=== PATIENT | female | born 1990 | race Caucasian/White ===

== ENCOUNTER → 2016-09-21 | Day surgery (SDC) | payer OTHER ==
[~2016-09-21] VITALS: Ht 162.6 cm; Wt 64.4 kg
[~2016-09-21] MED LIST: ALBU17IN2 INH; BUPIVACAINE HCL 0.25% 30 ML VIAL As Ordered ONE; BUPIVACAINE HCL 0.25% 30 ML VIAL XX ONE; LIDOCAINE 2% INJ 100 MG/5 ML SDV (FOR ANES.) As Ordered ONE; LR 1,000 ML IV SCH; MEPERIDINE INJ 25 MG/ML VIAL (J2175) IV PRN; METOCLOPRAMIDE INJ 10MG/2ML VIAL (J2765) As Ordered ONE; METOCLOPRAMIDE INJ 10MG/2ML VIAL (J2765) IV PRN; MIDAZOLAM INJ 2 MG/2 ML VIAL (J2250) As Ordered ONE; ONDANSETRON 4MG/2ML VIAL (J2405) IV PRN; PERCOCET 5MG/325MG TAB PO PRN; PROPOFOL 200 MG/20 ML VIAL As Ordered ONE; ROCURONIUM BROMIDE 50 MG/5 ML VIAL As Ordered ONE; dexameTHASONE 4 MG/ML 1ML VIAL (J1100) As Ordered ONE; fentaNYL 100 MCG/2 ML INJECTION (J3010) As Ordered ONE; fentaNYL 100 MCG/2 ML INJECTION (J3010) IV PRN; fentaNYL 250 MCG/5 ML INJECTION (J3010) As Ordered ONE
[2016-09-21 12:23] LABS: CONTROL LINE UCG INT CTR LINE PRESENT
[2016-09-21 15:20] VITALS: BP 132/68
--- NOTE | 2016-09-23 06:13 | RO ---
DATE OF PROCEDURE: 09/21/2016 PREOPERATIVE DIAGNOSIS: Symptomatic gallstones. POSTOPERATIVE DIAGNOSIS: Symptomatic gallstones. PROCEDURE PERFORMED: Laparoscopic cholecystectomy. SURGEON: Dr. Dustin Dominguez ANESTHESIA: General. INDICATIONS FOR PROCEDURE: Patient is a pleasant 25-year-old woman who had an episode of significant upper abdominal pain. Evaluation included an ultrasound that showed cholelithiasis. She is now for laparoscopic cholecystectomy. OPERATIVE PROCEDURE: The patient was placed under general endotracheal anesthesia. The patient's abdomen was prepped and draped in a sterile fashion. 0.25% Marcaine was infiltrated at each of the trocar sites. A short transverse curved incision was made in the upper aspect of the umbilicus. The skin was elevated and the fascia was opened along the midline just above the umbilicus. The peritoneum was elevated and opened. A Starks cannula was inserted and the abdomen was inflated with carbon dioxide gas. The laparoscope was inserted. Initial examination showed a distended appearing gallbladder with a normal-appearing liver. Visualized loops of the small and large bowel appeared normal. The patient had significant adhesions of the uterus and tubes and ovaries to the anterior abdominal and pelvic wall. Her uterus appeared to be solidly adherent to her anterior abdominal wall deep to her skin incision from a previous section. The tubes and ovaries were also adherent to the anterior pelvic wall. Attention was turned back to the gallbladder. The patient was tilted to a reverse Trendelenburg position and rolled to the left. Two 5 mm trocars were placed in the right upper quadrant and a third 5 mm trocar was placed in the left upper quadrant. Graspers were inserted. The gallbladder did not appear acutely inflamed, but was somewhat distended, though not tensely so. The gallbladder was grasped and elevated. Because the patient was thin, her cystic duct was clearly identified coursing down to its juncture with the common hepatic duct. The artery was similarly identified readily. The peritoneum was opened and both structures were dissected free. The cystic duct was doubly clipped with hemoclips and divided. The artery was then doubly clipped with hemoclips and divided. The gallbladder was then dissected free from the gallbladder bed using cautery dissection. The gallbladder was not perforated. The gallbladder was placed in an Endopouch. The right upper quadrant was irrigated and inspected. There was no evidence of bleeding and no bile leak was seen. The patient was returned to a flat position. The abdomen was deflated and the trocars were all removed. The gallbladder was recovered through the Starks site. Several stones about a centimeter in size were palpable within the gallbladder. The peritoneum at the Starks site was closed with #2-0 Vicryl. The fascia was then closed with interrupted simple sutures of #2-0 Vicryl. The skin incisions were all closed with buried #5-0 Vicryl and Steri-Strips. The patient tolerated the procedure well without apparent complication. She was awakened in the operating room, extubated and moved to the recovery room in stable condition.
== END ==
LOC: M SDC 11:52
PROVIDERS: ATTEND Surgery
DX: K80.10 Calculus of gallbladder with chronic cholecystitis without obstruction (principal); J45.909 Unspecified asthma, uncomplicated; Z91.013 Allergy to seafood
CPT/HCPCS: 47562; 84703; 88304; J1100; J2250; J2765; J3010

== ENCOUNTER → 2017-01-24 | Outpatient (CLI) | payer OTHER ==
[~2017-01-24] MED LIST changes: -BUPIVACAINE HCL 0.25% 30 ML VIAL As Ordered ONE; -BUPIVACAINE HCL 0.25% 30 ML VIAL XX ONE; -LIDOCAINE 2% INJ 100 MG/5 ML SDV (FOR ANES.) As Ordered ONE; -LR 1,000 ML IV SCH; -MEPERIDINE INJ 25 MG/ML VIAL (J2175) IV PRN; -METOCLOPRAMIDE INJ 10MG/2ML VIAL (J2765) As Ordered ONE; -METOCLOPRAMIDE INJ 10MG/2ML VIAL (J2765) IV PRN; -MIDAZOLAM INJ 2 MG/2 ML VIAL (J2250) As Ordered ONE; -ONDANSETRON 4MG/2ML VIAL (J2405) IV PRN; -PERCOCET 5MG/325MG TAB PO PRN; -PROPOFOL 200 MG/20 ML VIAL As Ordered ONE; -ROCURONIUM BROMIDE 50 MG/5 ML VIAL As Ordered ONE; -dexameTHASONE 4 MG/ML 1ML VIAL (J1100) As Ordered ONE; -fentaNYL 100 MCG/2 ML INJECTION (J3010) As Ordered ONE; -fentaNYL 100 MCG/2 ML INJECTION (J3010) IV PRN; -fentaNYL 250 MCG/5 ML INJECTION (J3010) As Ordered ONE
--- NOTE | 2017-01-24 16:47 | REP ---
Clinical: Left-sided sciatica. Technique: AP, lateral, bilateral oblique and coned-down views of the lumbosacral spine. Findings: Alignment and lordosis maintained. No acute fracture / compression injury or subluxation. No obvious spondylolysis or spondylolisthesis. No significant disc space narrowing or degenerative changes are appreciated. Impression: Essentially normal lumbosacral spine radiograph series. If the patient remains symptomatic consider MRI for further investigation. Signed by Don Aparicio MD 01/24/2017 04:39 P
== END ==
LOC: M LRY 15:57
PROVIDERS: ATTEND Family Medicine
DX: M54.32 Sciatica, left side (principal)

== ENCOUNTER 2017-04-28 23:36 | Emergency (ER) | payer OTHER ==
[~2017-04-28] VITALS: Ht 162.6 cm; Wt 68.2 kg
[2017-04-28 23:37] VITALS: BP 127/83
[2017-04-28] MEDS ORDERED: BENA25TA10 PO (23:48)
[2017-04-28] MEDS ORDERED: CETI10TA PO (23:48)
== END 2017-04-29 01:22 | disposition left against medical advice (07) ==
LOC: M ED 23:36
DX: Z53.29 Procedure and treatment not carried out because of patient's decision for other reasons (principal)